=== PATIENT | female | born 1990 | race Two or more races ===

== ENCOUNTER 2017-08-05 07:23 | Emergency (ER) | payer OTHER ==
[2017-08-05 07:28] VITALS: BMI 25.2
--- NOTE | 2017-08-05 07:32 | PDOC ---
Attending Attestation - Resident Resident Name: Ilan Phillipsel - ED Attending Attestation I have performed the following: I have examined & evaluated the patient, The case was reviewed & discussed with the resident, I agree w/resident's findings & plan, Exceptions are as noted - HPI HPI: 08/05/17 10:32 27 years old 17 weeks had an ultrasound 4 days ago which demonstrated demise resents today with severe cramping starting about 4 AM with heavy vaginal bleeding passing products of conception patient complaining of lightheadedness 3 episodes of near-syncope. No significant abdominal pain at this time. Symptoms are moderate persistent constant no exacerbating or alleviating factors. - Physicial Exam PE: 08/05/17 10:32 Vitals: Triage Vital signs reviewed General Appearance: no acute distress, well nourished well developed, Head: Atraumatic, Cardiac: Regular rate and rhythym, no murmurs, no rubs, no gallops, Lungs: Clear to auscultation bilateral, good air movement bilaterally, Abdomen: Soft, non distended, normal bowel sounds, non tender to palpation Extremities: Full range of motion to all extremities, no cyanosis, clubbing, or edema Skin: Warm and dry, no rashes or lesions, no rash, no petechiae Psych: normal mood, normal affect - Medical Decision Making 08/05/17 10:33 Patient seen and evaluated by EXPERIENTIAL THERAPIST. No obvious retained products of conception. Dr. Bear recommends Methergine. Will return to ED to reevaluate patient. We'll recheck 4 hour hematocrit. Reevaluation 4 hour hematocrit stable Per conversation with Dr. Bear will take patient to or this evening for D&C patient is care transferred to Dr. Bear.
--- NOTE | 2017-08-05 07:33 | PDOC ---
History of Present Illness - General Chief Complaint: Vaginal Bleeding Stated Complaint: VAGINAL BLEEDING Time Seen by Provider: 08/05/17 07:30 - History of Present Illness Initial Comments: 08/05/17 07:50 The patient is a 27 year old 17 week female with a history of a repaired chiari malformation who presents for evaluation of miscarriage. The patient reports that she follows with an CONTACT MANAGER at [facility] where she had a recent US 4 days ago and was told that the fetus did not have a heartbeat. She notes severe cramping earlier this morning around 4am with associated heavy vaginal bleeding and passing products of conception in the bathroom. She notes severe lightheadedness and 3 pre-syncopal episodes with continued heavy vaginal bleeding prompting her presentation to the ED for evaluation. She otherwise denies fevers, chills, SOB, chest pain, or changes with urination. LMP 04/08/17. Past History - Past Medical History Allergies/Adverse Reactions: Allergies Allergy/AdvReac Type Severity Reaction Status Date / Time No Known Allergies Allergy Verified 08/05/17 07:24 Home Medications: Ambulatory Orders NK [No Known Home Medication] 08/05/17 COPD: No - Suicide/Smoking/Psychosocial Hx Smoking Status: No Smoking History: Never smoked Number of Cigarettes Smoked Daily: 0 Information on smoking cessation initiated: No Hx Alcohol Use: No Drug/Substance Use Hx: No Substance Use Type: None Review of Systems - Review of Systems Comments:: 08/05/17 08:01 Constitutional: No fevers, chills, fatigue, malaise HEENT: No Rhinorrhea, nasal congestion, visual changes Cardiovascular: Lightheadedness, Pre-Syncope. No chest pain, palpitations, Respiratory: No Cough, SOB, Hemoptysis, Gastrointestinal: Lower abdominal cramping. Nausea. No Vomiting, Constipation, Diarrhea, Melena Genitourinary: Vaginal Bleeding. No Dysuria, Frequency, Urgency, Hesitancy, Hematuria, Flank pain Musculoskeletal: No Myalgia, arthralgia Skin: Pallor. No rashes, itching, bruising, Neurologic: No Headache, Numbness, Weakness, or Tingling Psychiatric: No Hallucinations. No SI or HI *Physical Exam - Vital Signs Last Vital Signs Temp Pulse Resp BP Pulse Ox 97.5 F L 108 H 18 125/73 100 08/05/17 07:25 08/05/17 07:25 08/05/17 07:25 08/05/17 07:25 08/05/17 07:25 - Physical Exam Comments: 08/05/17 08:04 General Appearance: Nourished. In Moderate Apparent Distress HEENT: EOMI, ISAIAH. No Pharyngeal Erythema, Tonsillar Exudate, Tonsillar Erythema Neck: No Cervical Lymphadenopathy Respiratory/Chest: Lungs Clear, Normal Breath Sounds. No Crackles, Rales, Rhonchi, Wheezing Cardiovascular: Regular Rhythm, Regular Rate. No Murmur, Gallops, Rubs Gastrointestinal/Abdominal: Normal Bowel Sounds, Soft. Mild Lower quadrant discomfort with palpation. No Guarding, Rebound, Pelvic Exam: Heavy bleeding noted with large amount of clots. Tenderness on exam with active bleeding. Musculoskeletal: No CVA Tenderness Extremity: Delayed Capillary Refill Integumentary: Pallor Noted on exam. Dry, Warm Neurologic: Fully Oriented, Alert, Normal Mood/Affect, Normal Response, ED Treatment Course - LABORATORY CBC & Chemistry Diagram: 08/05/17 12:25 08/05/17 07:30 Medical Decision Making - Medical Decision Making 08/05/17 08:06 The patient is a 27 year old 17 week female with a history of a repaired chiari malformation who presents for evaluation of miscarriage. Differential includes but is not limited to: Anemia, Miscarriage, Retained Products, Infections, Metabolic Derangement. Given the patient's heavy vaginal bleeding and pallor, we are concerned for anemia due to the patient's ongoing miscarriage. We will obtain a cbc, cmp, coags, type and screen, and transvaginal US to evaluate further. We will treat in the meantime with IV fluids and zofran and continue to monitor and reassess. 08/05/17 14:22 CBC, cmp, coags are unremarkable. Repeat CBC demonstrates a decrease in the patient's hgb. Dr. Bear has evaluated the patient and the patient continues to experience bleeding. Dr. Bear will take the patient for D&C later today to help manage the patient further. He will take the patient on his service for admission for possible D&C later today. 08/05/17 17:43 Upon further discussion with the patient and Dr. Bear, the patient feels comfortable being discharged home with close follow up with Dr. Bear. Dr. Bear is comfortable with discharging the patient and following up on an outpatient basis. We discussed the plan and strict return precautions with the patient who voiced understanding and is agreeable with the plan. *DC/Admit/Observation/Transfer Diagnosis at time of Disposition: Spontaneous , Vaginal bleeding during - Discharge Dispostion Disposition: HOME Condition at time of disposition: Good Admit: No - Referrals Referrals: Taylor Rosado MD [Primary Care Provider] - - Patient Instructions Printed Discharge Instructions: DI for Miscarriage Additional Instructions: Please return to the ER if you experience concerning or worsening symptoms including worsening pain, bleeding, vomiting, or fainting. Your lab results and imaging results show that you had a miscarriage. It is extremely important that you follow up with Dr. Bear for possible D&C to help further manage your symptoms. Should you develop any other concerning symptoms , please return to the ER. - Post Discharge Activity
[2017-08-05] MEDS ORDERED: SODIUM CHLORIDE 1,000 ML IV STA (07:41)
[2017-08-05] MEDS ORDERED: ONDANSETRON 4 MG/2 ML VIAL IVPUSH ONE (07:41)
[2017-08-05 08:19] LABS: BASO % 0.2 % (0-2.0); EOS % 3.2 % (0-4.5); HEMATOCRIT 35.7 % (32.4-45.2); HEMOGLOBIN 11.8 GM/dL (10.7-15.3); LYMPH % 10.8 % (8-40); MCH 26.1 pg (25.7-33.7); MCHC 33.1 g/dl (32.0-36.0); MEAN CELL VOLUME 78.6 fl (80-96); MONO % 4.4 % (3.8-10.2); NEUT % 81.4 % (42.8-82.8); PLATELET COUNT 187 K/MM3 (134-434); RBC 4.54 M/mm3 (3.60-5.2); RDW 14.8 % (11.6-15.6); WHITE BLOOD COUNT 9.6 K/mm3 (4.0-10.0)
[2017-08-05 08:34] LABS: INR 1.07 (0.82-1.09); PROTHROMBIN TIME (PATIENT) 12.1 SEC (9.98-11.88)
[2017-08-05 08:37] LABS: ACTIVATED PTT 22.9 SECONDS (26.9-34.4)
[2017-08-05 08:48] LABS: CHLORIDE 109 mmol/L (98-107); POTASSIUM 3.7 mmol/L (3.5-5.1); SODIUM 138 mmol/L (136-145)
[2017-08-05 08:54] LABS: ANION GAP 8 (8-16); BILIRUBIN,TOTAL 0.3 mg/dL (0.2-1.0); BLOOD UREA NITROGEN 10 mg/dL (7-18); CALCIUM 8.1 mg/dL (8.5-10.1); CO2 21 mmol/L (21-32); CREATININE 0.6 mg/dL (0.55-1.02); GLUCOSE,RANDOM 93 mg/dL (74-106); SGOT/AST 23 U/L (15-37); SGPT/ALT 44 U/L (12-78); TOT PROT 6.6 g/dl (6.4-8.2)
[2017-08-05 08:57] LABS: ALK PHOS 65 U/L (45-117)
[2017-08-05] MEDS ORDERED: METHYLERGONOVINE MALEATE 0.2 MG/1 ML AMP IM ONE (09:39)
[2017-08-05] MEDS ORDERED: ACETAMINOPHEN 325 MG TABLET (FP) ONE (10:14)
[2017-08-05 12:33] LABS: BASO % 0.1 % (0-2.0); EOS % 0.7 % (0-4.5); HEMATOCRIT 29.9 % (32.4-45.2); LYMPH % 8.6 % (8-40); MCH 26.2 pg (25.7-33.7); MCHC 33.3 g/dl (32.0-36.0); MEAN CELL VOLUME 78.6 fl (80-96); MEAN PLT VOLUME 8.5 fl (7.5-11.1); MONO % 3.2 % (3.8-10.2); NEUT % 87.4 % (42.8-82.8); PLATELET COUNT 155 K/MM3 (134-434); RBC 3.81 M/mm3 (3.60-5.2); RDW 14.6 % (11.6-15.6); WHITE BLOOD COUNT 7.1 K/mm3 (4.0-10.0)
[2017-08-05 18:10] VITALS: BP 117/70; PULSE 80; TEMP 98.8
--- NOTE | 2017-08-05 23:48 | EKG ---
Test Reason : Blood Pressure : / mmHG Vent. Rate : 087 BPM Atrial Rate : 087 BPM P-R Int : 136 ms QRS Dur : 074 ms QT Int : 350 ms P-R-T Axes : 052 049 028 degrees QTc Int : 421 ms NORMAL SINUS RHYTHM NORMAL ECG WHEN COMPARED WITH ECG OF 17-AUG-2008 17:59, NO SIGNIFICANT CHANGE WAS FOUND Confirmed by REBECCA CURTIS MD ([id number]) on 08/05/2017 11:48:09 PM Referred By: Confirmed By:REBECCA CURTIS MD
--- NOTE | 2017-08-06 09:21 | PN ---
Progress Note (short form) - Note Progress Note: Pt was seen and examined by me yesterday. Tavon, 27yo P3 with at EGA 16wk and IUFD at ~12 wks presented to ER after developing heavy bleeding and passing a fetus. Pt was followed at [facility] and was diagnosed with IUFD. She was scheduled for D&C today. PMH: prior Chiary malformation that was repaired PSH: Primary C/S x 1, x 1, repeat C/S x 1 All: NKDA Med: PNV SH: , no T/E/D Exam: VSS, afebrile Abdom: soft, NT, ND Pelvic: os FT open, mild bleeding, uterus 10wk Ext; (-) c/c/e US images were reviewed: no IUP, endo 3.4cm with heterogenous debris. Possible clots vs. RPOC Imp: pt was admitted for D&C. However, due to the OR delay, the pt was initially scheduled for 6pm. Later, due to the OR being unavalable, the case was moved to midnight. The pt's bleeding decreased to minimal. She was advised to be admitted to have D&C done at 8am today. The pt declined admission. She has a f/u with her doctor today. She was also given my info for f/u and precautions. The admission was reversed and the pt was discharged to home.
== END 2017-08-05 18:09 | disposition home or self-care (01) ==
LOC: JER 07:23 → JASUSAT 12:49 → JER 18:09
DX: O26.891 Other specified pregnancy related conditions, first trimester (principal); O03.4 Incomplete spontaneous abortion without complication; Z3A.10 10 weeks gestation of pregnancy
CPT/HCPCS: 36415; 76830-TC; 80053; 84702; 85025; 85610; 85730; 86850; 86900; 86901; 93005; 93010; 99285-25; J7030